=== PATIENT | female | born 1955 | race Caucasian/White ===

== ENCOUNTER → 2023-11-24 | Outpatient (CLI) | payer BC ==
--- NOTE | 2023-11-24 10:06 | US ---
EXAMINATION TYPE: US pelvic complete DATE OF EXAM: 11/24/2023 COMPARISON: NONE CLINICAL INDICATION: Female, 68 years old with history of N939 ABN UTERINE AND VAG BLEEDING; Postmeno pausal bleeding. TECHNIQUE: Transabdominal (TA EXAM MEASUREMENTS: Uterus: 8.5 x 3.5 x 5.0 cm Endometrial Stripe: .9 cm 1. Uterus: Anteverted wnl 2. Endometrium: wnl 3. Right Ovary: Obscured by overlying bowel gas 4. Left Ovary: Obscured by overlying bowel gas 5. Bilateral Adnexa: wnl 6. Posterior cul-de-sac: wnl IMPRESSION: No discrete abnormality seen.
== END | disposition home or self-care (01) ==
LOC: RADUSWWP 08:45
PROVIDERS: ATTEND Family Medicine
DX: N93.9 Abnormal uterine and vaginal bleeding, unspecified (principal); N95.0 Postmenopausal bleeding
CPT/HCPCS: 76856

== ENCOUNTER 2024-03-19 08:32 | Day surgery (SDC) | payer BC ==
[2024-03-13 17:46] VITALS: BMI 35.0
--- NOTE | 2024-03-19 08:17 | P.HPOB ---
History of Present Illness H&P Date: 03/19/24 Chief Complaint: postmenopausal bleeding 68 year old presents for D&C hysteroscopy due to postmenopausal bleeding. Review of Systems All systems: negative Constitutional: Denies chills, Denies fever Eyes: denies blurred vision, denies pain Ears, nose, mouth and throat: Denies headache, Denies sore throat Cardiovascular: Denies chest pain, Denies shortness of breath Respiratory: Denies cough Gastrointestinal: Denies abdominal pain, Denies diarrhea, Denies nausea, Denies vomiting Genitourinary: Denies dysuria, Denies hematuria Musculoskeletal: Denies myalgias Integumentary: Denies pruritus, Denies rash Neurological: Denies numbness, Denies weakness Psychiatric: Denies anxiety, Denies depression Endocrine: Denies fatigue, Denies weight change Past Medical History Past Medical History: Asthma, GERD/Reflux, Hyperlipidemia, Hypertension, Osteoarthritis (OA) Additional Past Medical History / Comment(s): Reason for procedure-"Abnormal bleeding." "They tried to take a bx in the office but my cervix wouldn't open." Asthma on exertion. "Borderline high cholesterol.""No medication for it." History of Any Multi-Drug Resistant Organisms: None Reported Past Surgical History: Orthopedic Surgery Additional Past Surgical History / Comment(s): Broken rt ankle-plate in ankle. Portion of my lt clavicle removed due to arthritis. Back injections steroid x2. Past Anesthesia/Blood Transfusion Reactions: Postoperative Nausea & Vomiting (PONV) Additional Past Anesthesia/Blood Transfusion Reaction / Comment(s): Extreme PONV (that lasts a day)-difficult to wake up. no hx of blood transfusion. Smoking Status: Former smoker - Past Family History Father Family Medical History: Cancer Additional Family Medical History / Comment(s): Lung cancer Medications and Allergies Home Medications Medication Instructions Recorded Confirmed Type Celecoxib [CeleBREX] 200 mg PO QAM 03/13/24 03/13/24 History Metoprolol Succinate (ER) [Toprol 25 mg PO QAM 03/13/24 03/13/24 History Xl] Motrin(Unknown Dose) 1 dose PO Q8H PRN 03/13/24 03/13/24 History Prilosec(Unknown Dose) 1 dose PO QAM 03/13/24 03/13/24 History Proventil(Unknown Dose) 1 - 2 puff INHALATION QAM PRN 03/13/24 03/13/24 History Vitamin D(Unknown Dose) 1 dose PO QAM 03/13/24 03/13/24 History amLODIPine BESYLATE 2.5 mg PO QAM 03/13/24 03/13/24 History Allergies Allergy/AdvReac Type Severity Reaction Status Date / Time No Known Allergies Allergy Verified 03/13/24 17:27 Exam Osteopathic Statement: *. No significant issues noted on an osteopathic structural exam other than those noted in the History and Physical/Consult. Heart: Regular rate and rhythm Lungs: Clear to auscultation bilaterally Abdomen: Soft, nontender Extremities: Negative Homans sign Assessment and Plan (1) Postmenopausal bleeding Status: Acute Code(s): N95.0 - POSTMENOPAUSAL BLEEDING SNOMED Code(s): 79076911 Plan: D&C hysteroscopy
[~2024-03-19 08:32] MED LIST: HYDROmorphone 0.5 MG/0.5 ML SYRINGE IVP PRN; Pre Op ABX Message 1 EACH MISC MISCELLANE ONE
[2024-03-19 09:02] VITALS: TEMP 98.1
[2024-03-19] MEDS: SCOPOLAMINE 1 MG/72 HR PATCH TRANSDERM ONE (09:13)
[2024-03-19] MEDS: LACTATED RINGERS 1,000 ML IV SCH (09:14)
[2024-03-19] MEDS: DEXAMETHASONE SOD PHOSPHATE 4 MG/ML 1 ML VIAL IV ONE (09:15)
[2024-03-19] MEDS: ONDANSETRON 4 MG/2 ML VIAL IVP ONE (09:15)
[2024-03-19] MEDS: IV FLUID CONTINUATION 1,000 ML IV ONE (09:15)
[2024-03-19] MEDS: LIDOCAINE 1% (10MG/ML) FOR IV START INTRADERMA ONE (09:15)
[2024-03-19] MEDS: FAMOTIDINE 20 MG/2 ML VIAL IV STA (09:16)
[2024-03-19] MEDS ORDERED: SUCCINYLCHOLINE CHLORIDE 200 MG/10 ML VIAL IV ONE (09:50)
[2024-03-19] MEDS ORDERED: PROPOFOL 10 MG/ML 20 ML VIAL IV ONE (09:50)
[2024-03-19] MEDS ORDERED: LIDOCAINE 1% INJ 10MG/ML (20 ML MDV) ONE (09:50)
[2024-03-19] MEDS ORDERED: KETAMINE HCL IN 0.9 % NACL 50 MG/5 ML SYRINGE ONE (09:50)
[2024-03-19] MEDS ORDERED: KETOROLAC 15 MG/ML 1 ML VIAL ONE (09:50)
--- NOTE | 2024-03-19 10:35 | P.OP ---
Date of Procedure: 03/19/24 Preoperative Diagnosis: 1. postmenpausal bleeding Postoperative Diagnosis: 1. Post menopausal bleeding 2. endometrial polyps Procedure(s) Performed: D&C hysteroscopy Anesthesia: SHIRAZ Surgeon: Rosie Hoffman Estimated Blood Loss (ml): 2 IV fluids (ml): 300 Urine output (ml): 20 Pathology: other (endometrial currettings) Condition: stable Disposition: PACU Operative Findings: minimal tissue. smooth contour of uterus except small polyps on the left side of uterus. Description of Procedure: patient was taken the operating room where general anesthesia was obtained without difficulty. She is prepped draped in normal sterile fashion dorsal lithotomy position, legs placed in candycane stirrups. Bladder drained of all urine. Weighted speculum placed in the vagina and the anterior lip of the cervix was grasped with single-tooth tenaculum. The cervix was gently dilated to #8 Hegar dilator and a hysteroscopy was performed. Hysteroscopy revealed normal cervix normal right side of the uterus with ostia visualized smooth contour of the uterus and on the left side of the uterus there were 2 small polyps coming from that left side. Sharp curet was then gently used to obtain endometrial curettings and polyp forceps were used to try and achieve more tissue. Hemostasis was assured. All instruments removed from the vagina. Patient tolerated procedure well. Sponge and instrument counts correct 2. She was taken to recovery in stable condition.
[2024-03-19 10:48] VITALS: RESP 18
[2024-03-19 11:53] VITALS: BP 121/79; PULSE 60
== END 2024-03-19 12:23 | disposition home or self-care (01) ==
LOC: OR 08:32
PROVIDERS: ATTEND Obstetrics & Gynecology
DX: N84.0 Polyp of corpus uteri (principal); E78.00 Pure hypercholesterolemia, unspecified; I10 Essential (primary) hypertension; J45.909 Unspecified asthma, uncomplicated; K21.9 Gastro-esophageal reflux disease without esophagitis; M19.90 Unspecified osteoarthritis, unspecified site; Z87.891 Personal history of nicotine dependence; Z79.1 Long term (current) use of non-steroidal anti-inflammatories (NSAID); Z79.899 Other long term (current) drug therapy
CPT/HCPCS: 58558; J0330; J1100; J2405; J2001; J3490; J1885; J2704; 88305; 88342

== ENCOUNTER → 2024-03-30 | Outpatient (CLI) | payer BC ==
--- NOTE | 2024-05-02 15:14 | MM ---
Reason for Exam: Screening (asymptomatic). Last mammogram was performed 1 year(s) and 4 month(s) ago. Patient History: Menarche at age 14. First Full-Term at age 31. Postmenopausal. Risk Values: Alejandra 5 year model risk: 1.9%. NCI Lifetime model risk: 6.7%. Prior Study Comparison: 12/17/2022 Bilateral MG 3D screening mammo w/cad, Unknown. Tissue Density: The breasts are almost entirely fatty. Findings: Analyzed By CAD. Right breast: There is no suspicious group of microcalcifications or new suspicious mass. Left breast: Retroareolar architectural distortion approximately 3.2 cm from nipple on CC view. Overall Assessment: Incomplete: need additional imaging evaluation, BI-RAD 0 Management: Diagnostic Mammogram of the left breast. Diagnostic Breast Ultrasound of the left breast. [facility] will attempt to contact patient to return for supplemental views and ultrasound if indicated. Patient should continue monthly self-breast exams. A clinical breast exam by your physician is recommended on an annual basis. This exam should not preclude additional follow-up of suspicious palpable abnormalities. Note on Alejandra scores and lifetime risk: 1. A Alejandra score greater than 3% is considered moderate risk. If this is the case, consider specialist referral to assess eligibility for a risk reducing agent. 2. If overall lifetime risk for the development of breast cancer is 20% or higher, the patient may qualify for future screening with alternating mammogram and breast MRI. Electronically signed and approved by: Nestor Anderson DO
== END | disposition home or self-care (01) ==
LOC: RADMAMWWP 12:00
PROVIDERS: ATTEND Family Medicine
DX: Z12.31 Encounter for screening mammogram for malignant neoplasm of breast (principal); Z78.0 Asymptomatic menopausal state; R92.313 Mammographic fatty tissue density, bilateral breasts
CPT/HCPCS: 77063; 77067

== ENCOUNTER → 2024-05-02 | Outpatient (CLI) | payer BC ==
--- NOTE | 2024-05-02 15:14 | MM ---
Reason for Exam: Additional evaluation requested from abnormal screening. Last screening mammogram was performed 1 month(s) ago. Patient History: Menarche at age 14. First Full-Term at age 31. Postmenopausal. Risk Values: Alejandra 5 year model risk: 1.9%. NCI Lifetime model risk: 6.7%. Prior Study Comparison: 12/17/2022 Bilateral MG 3D screening mammo w/cad, Unknown. 03/30/2024 Bilateral MG 3D screening mammo w/cad, [facility]. Tissue Density: Left: The breasts are heterogeneously dense, which may obscure small masses. Findings: Analyzed By CAD. Left-sided retroareolar spiculated mass 2.5 cm from the nipple measuring 2 cm in size. Ultrasound is recommended. Overall Assessment: Incomplete: need additional imaging evaluation, BI-RAD 0 Management: Diagnostic Breast Ultrasound of the left breast. . Results were given to the patient verbally at the time of exam. Patient should continue monthly self-breast exams. A clinical breast exam by your physician is recommended on an annual basis. This exam should not preclude additional follow-up of suspicious palpable abnormalities. Note on Alejandra scores and lifetime risk: 1. A Alejandra score greater than 3% is considered moderate risk. If this is the case, consider specialist referral to assess eligibility for a risk reducing agent. 2. If overall lifetime risk for the development of breast cancer is 20% or higher, the patient may qualify for future screening with alternating mammogram and breast MRI. Electronically signed and approved by: Tito Quinones M.D. Radiologis
--- NOTE | 2024-05-02 15:15 | USB ---
Reason for Exam: Additional evaluation requested from abnormal screening. Patient History: Menarche at age 14. First Full-Term at age 31. Postmenopausal. Risk Values: Alejandra 5 year model risk: 1.9%. NCI Lifetime model risk: 6.7%. Technique: Method: Targeted. Doppler: Color. Patient Position: Supine. Prior Study Comparison: 12/17/2022 Bilateral MG 3D screening mammo w/cad, Unknown. 03/30/2024 Bilateral MG 3D screening mammo w/cad, [facility]. Findings: The periareolar of the left breast, the axilla of the left breast and the retroareolar of the left breast were scanned. Hypoechoic mass with posterior acoustic shadowing and irregular margins at the left retroareolar 9:00 position measuring 1.5 x 1.2 cm which is highly suspicious for malignancy. Ultrasound-guided core biopsy is recommended. No abnormal axillary adenopathy seen. Overall Assessment: Highly suggestive of malignancy, BI-RAD 5 Management: Ultrasound Core Biopsy of the left breast. A clinical breast exam by your physician is recommended on an annual basis and results should be correlated with mammographic findings. This exam should not preclude additional follow-up of suspicious palpable abnormalities. Results were given to the patient verbally at the time of exam. Electronically signed and approved by: Tito Quinones M.D. Radiologis
== END | disposition home or self-care (01) ==
LOC: RADMAMWWP 14:04
PROVIDERS: ATTEND Family Medicine
DX: R92.8 Other abnormal and inconclusive findings on diagnostic imaging of breast
CPT/HCPCS: 77061; 77065

== ENCOUNTER → 2024-06-08 | Day surgery (SDC) | payer BC ==
--- NOTE | 2024-06-18 11:22 | MM ---
Reason for Exam: Post Procedure Mammogram. Last screening mammogram was performed 2 month(s) ago. Patient History: Menarche at age 14. First Full-Term at age 31. Postmenopausal. Risk Values: Alejandra 5 year model risk: 1.9%. NCI Lifetime model risk: 6.7%. Prior Study Comparison: 12/17/2022 Bilateral MG 3D screening mammo w/cad, Unknown. 03/30/2024 Bilateral MG 3D screening mammo w/cad, [facility]. 05/02/2024 Left MG 3D work up w/cad LT, [facility]. 05/02/2024 Left US breast workup limited LT, [facility]. Tissue Density: Left: The breasts are almost entirely fatty. Pathology Description: Location: posterior, retroareolar. Marker Left Behind. Needle Type: Mammotome Cores: 3 Skin Nicks: 1 Gauge: 13 The procedure of ultrasound guided core biopsy was explained to the patient. Benefits, alternatives, and risks were discussed. An informed consent was then obtained. The patient was placed in supine positioning for imaging and for the procedure. The overlying skin was prepped and draped in usual sterile fashion. Lidocaine buffered with bicarbonate was used as anesthetic into the skin and subcutaneous tissue up to area of concern in the left breast. A awais was made with surgical scalpel. Under ultrasound guidance, a 12-gauge vacuum assisted biopsy gun device was used to obtain 3 core samples. Following this, a biopsy clip was left in lesion. The patient tolerated the procedure well without any immediate complication. The patient was kept in the radiology department for short stay after the procedure and then discharged home in stable condition. Postprocedure mammogram: The patient was transferred to mammography for physician ordered post procedure mammogram for clip placement verification. Impression: Successful, uncomplicated ultrasound guided core biopsy of area of concern in the left breast, full pathology results to follow. [facility], , 06/08/2024 11:50 AM. Pathology Results: Result: Malignant, Invasive ductal carcinoma. Pathology and radiology were reviewed. Findings are concordant. LEFT BREAST, POSTERIOR NIPPLE, NEEDLE CORE BIOPSY: Invasive moderately differentiated ductal carcinoma (Grade 2). See Surgical Pathology Cancer Case Summary. Overall Assessment: Malignant Assessment: MG diagnostic mammo LT wo CAD. - Left: Known biopsy proven malignancy, BI-RAD 6. Management: Surgical Consultation of the left breast. Electronically signed and approved by: Nestor Anderson, DO
== END ==
LOC: RADUSWWP 09:46
PROVIDERS: ATTEND Radiology Body Imaging
DX: C50.012 Malignant neoplasm of nipple and areola, left female breast (principal)
CPT/HCPCS: 77065; 88305; 88341; 88342

== ENCOUNTER → 2024-06-20 | Outpatient (CLI) | payer BC ==
[2024-06-20 10:07] VITALS: BP 145/81; PULSE 57; RESP 17; TEMP 97.9
--- NOTE | 2024-06-20 10:52 | P.GSCN ---
History of Present Illness Consult date: 06/20/24 Reason for Consult: left breast IDC History of present illness: Jamila is a 68 year old female seen in consultation for Dr. Perez/ Aracely Bishop regarding a left breast biopsy-proven invasive ductal carcinoma. She underwent a bilateral mammogram on 03-30-2024. This revealed in the left breast architectural distortion which was approximately 3.2 cm from the nipple on the cc view. Diagnostic mammogram was recommended. Ultrasound of the left breast was performed on 05-02-2024. This showed a 1.5 x 1.2 cm highly suspicious lesion in the left retroareolar region. She underwent an ultrasound-guided core biopsy on 06-08-2024. Biopsy revealed invasive moderately differentiated ductal carcinoma grade 2. This is ER/AL positive HER2 pending. She did not feel anything in her breast. She has never had any surgery on either breast. She is not complaining of any recent trauma or infection in the breast. Caffeine: 3 cups/day nicotine: stopped 40 years ago, smoked for 5 years 3 cig/day chocolate: occasional BCP: < 1 year many years ago hormones: none Family History: father: lung cancer smoker Hormonal History: menarche: 15 M3, breast fed: no, age at first : 31 menopause: 54 Surgical History: fracture right ankle left color bone arthritis D&C 2 months ago polyp, bleeding now; Dr. Hoffman Medical History: HTN osteo-arthritis back pain cortisone injections in back for about 1 year Social History: nicotine: as above alcohol: occasional ( twice a month) drugs: none Review of Systems - Constitutional Reports sweats - EENT Eyes: denies blurred vision Ears: deny: decreased hearing, tinnitus Ears, nose, mouth and throat: Denies dysphagia - Breasts bilateral: as per HPI - Cardiovascular Denies chest pain, Denies shortness of breath - Respiratory Denies cough, Denies 7 - Gastrointestinal Reports as per HPI - Genitourinary Genitourinary: Denies dysuria, Denies hematuria Menstruation: Reports as per HPI - Musculoskeletal Reports as per HPI - Integumentary Denies rash, Denies unusual bruising - Neurological Denies headaches, Denies syncope - Psychiatric Reports as per HPI - Endocrine Reports as per HPI - Hematologic/Lymphatic Reports as per HPI - Allergic/Immunologic Reports as per HPI Past Medical History Past Medical History: Asthma, GERD/Reflux, Hyperlipidemia, Hypertension, Osteoarthritis (OA) Additional Past Medical History / Comment(s): Reason for procedure-"Abnormal bleeding." "They tried to take a bx in the office but my cervix wouldn't open." Asthma on exertion. "Borderline high cholesterol.""No medication for it." History of Any Multi-Drug Resistant Organisms: None Reported Past Surgical History: Orthopedic Surgery Additional Past Surgical History / Comment(s): Broken rt ankle-plate in ankle. Portion of my lt clavicle removed due to arthritis. Back injections steroid x2. Past Anesthesia/Blood Transfusion Reactions: Postoperative Nausea & Vomiting (PONV) Additional Past Anesthesia/Blood Transfusion Reaction / Comm: Extreme PONV (that lasts a day)-difficult to wake up. no hx of blood transfusion. Past Psychological History: No Psychological Hx Reported Smoking Status: Former smoker Past Alcohol Use History: Rare Additional Past Alcohol Use History / Comment(s): Smoked at age 20 for 1 year. less then a ppd. Past Drug Use History: None Reported - Past Family History Father Family Medical History: Cancer Additional Family Medical History / Comment(s): Lung cancer Medications and Allergies Home Medications Medication Instructions Recorded Confirmed Type Celecoxib [CeleBREX] 200 mg PO QAM 03/13/24 06/20/24 History Metoprolol Succinate (ER) [Toprol 25 mg PO QAM 03/13/24 06/20/24 History Xl] Motrin(Unknown Dose) 1 dose PO Q8H PRN 03/13/24 06/20/24 History Prilosec(Unknown Dose) 1 dose PO QAM 03/13/24 06/20/24 History Proventil(Unknown Dose) 1 - 2 puff INHALATION QAM PRN 03/13/24 06/20/24 History Vitamin D(Unknown Dose) 1 dose PO QAM 03/13/24 06/20/24 History amLODIPine BESYLATE 2.5 mg PO QAM 03/13/24 06/20/24 History Allergies Allergy/AdvReac Type Severity Reaction Status Date / Time No Known Allergies Allergy Verified 06/20/24 10:02 Surgical - Exam Vital Signs Temp Pulse Resp BP Pulse Ox 97.9 F 57 L 17 145/81 97 06/20/24 10:03 06/20/24 10:03 06/20/24 10:03 06/20/24 10:03 06/20/24 10:03 - General no distress - Eyes normal ocular movement - Neck trachea midline - Respiratory normal respiratory effort, clear to auscultation - Cardiovascular Rhythm: regular Heart Sounds: normal: S1, S2 - Abdomen Abdomen: soft, non tender, no guarding, no rigid, no rebound - Integumentary normal turgor - Neurologic no disoriented, no combative - Musculoskeletal normal gait - Psychiatric oriented to time, oriented to person, oriented to place, speech is normal, memory intact Breast Exam: BRA: 44D Inspection: bilateral grade 2 ptosis Palpation: right breast: Exam no dominant masses or nodules of concern Right axilla: No adenopathy of concern Left breast: Multi positional exam no dominant masses or nodules of concern Left axilla: No adenopathy of concern Results Mammogram reviewed with Dr. Knapp from radiology, lesion 3.2 cm from the left nipple areolar complex in the retroareolar region, no lesions of concern in the right breast Assessment and Plan Assessment: Impression: Left breast invasive ductal carcinoma stage I Hypertension Plan: Presentation of case at tumor board Probable left breast needle localization lumpectomy via mass to proximal the incision with oncoplastic tissue transfer, left breast sentinel node injection and left breast sentinel node biopsy, possible left axillary node dissection CC: Dr. Jessica, Dr. Perez
== END ==
LOC: WWCWWP 09:27
PROVIDERS: ATTEND Surgery
DX: R92.8 Other abnormal and inconclusive findings on diagnostic imaging of breast (principal); C50.912 Malignant neoplasm of unspecified site of left female breast; I10 Essential (primary) hypertension; Z87.891 Personal history of nicotine dependence; Z17.0 Estrogen receptor positive status [ER+]; Z79.899 Other long term (current) drug therapy

== ENCOUNTER 2024-07-17 07:14 | Day surgery (SDC) | payer BC ==
[~2024-07-17 07:14] MED LIST changes: -HYDROmorphone 0.5 MG/0.5 ML SYRINGE IVP PRN; +LIDOCAINE 1% (10MG/ML) FOR IV START INTRADERMA PRN; +MIDAZOLAM 2 MG/2 ML VIAL IV PRN; -Pre Op ABX Message 1 EACH MISC MISCELLANE ONE; +fentaNYL (PF) 50 MCG/ML 2 ML AMP IVP PRN
[2024-07-17] MEDS: LACTATED RINGERS 1,000 ML IV SCH (07:47)
[2024-07-17] MEDS: ACETAMINOPHEN TAB 500 MG TAB PO PRN (07:48)
[2024-07-17] MEDS: SCOPOLAMINE 1 MG/72 HR PATCH TRANSDERM STA (07:52)
[2024-07-17] MEDS: SODIUM BICARB 8.4% 10 ML VIAL (1 MEQ/ML) MISCELLANE ONE (08:41)
[2024-07-17] MEDS: LIDOCAINE 1% INJ 10MG/ML (20 ML MDV) SQ ONE ×6 (08:41→11:57)
[2024-07-17] MEDS: ONDANSETRON 4 MG/2 ML VIAL IVP ONE (09:18)
[2024-07-17] MEDS: HEPARIN SODIUM,PORCINE 5,000 UNIT/ML 1 ML VIAL SQ PRN (09:18)
[2024-07-17] MEDS: DEXAMETHASONE SOD PHOSPHATE 4 MG/ML 1 ML VIAL IV ONE (09:18)
--- NOTE | 2024-07-17 09:32 | P.NAPBC ---
NAPBC Queries - NAPBC Queries Was patient's case review presented at [facility] tumor board? If no, comment.: Yes Was patient's pathology reviewed at [facility]? If no, comment.: Yes Was breast conservation surgery offered? If no, comment.: Yes Was sentinel node biopsy offered? If no, comment.: Yes Was diagnosis confirmed by percutaneous core biopsy? If no, comment.: Yes Is patient mastectomy patient?: No Was a preop referral to reconstructive surgeon offered?: No Clinical Stage: stage 1 left breast IDC [id number]?G2
[2024-07-17] MEDS ORDERED: ePHEDrine 50 MG/ML 1 ML VIAL ONE (09:43)
[2024-07-17] MEDS ORDERED: PROPOFOL 10 MG/ML 20 ML VIAL IV ONE (09:43)
[2024-07-17] MEDS ORDERED: PHENYLEPHRINE 10 MG/ML VIAL ONE (09:43)
[2024-07-17] MEDS ORDERED: ROCURONIUM 10 MG/ML (5 ML VIAL) IV ONE (09:43)
[2024-07-17] MEDS ORDERED: MIDAZOLAM 2 MG/2 ML VIAL ONE (09:43)
[2024-07-17] MEDS ORDERED: HYDROmorphone (PF) 1 MG/ML ONE (09:43)
[2024-07-17] MEDS ORDERED: SUCCINYLCHOLINE CHLORIDE 200 MG/10 ML VIAL IV ONE (09:43)
[2024-07-17] MEDS ORDERED: fentaNYL (PF) 50 MCG/ML 2 ML AMP ONE (09:43)
[2024-07-17] MEDS ORDERED: LIDOCAINE 1% INJ 10MG/ML (20 ML MDV) ONE (09:43)
[2024-07-17] MEDS ORDERED: GLYCOPYRROLATE 0.2 MG/ML 2 ML VIAL ONE (09:43)
[2024-07-17] MEDS: LACTATED RINGERS 1,000 ML IV ONE (11:34)
--- NOTE | 2024-07-17 11:45 | NM ---
EXAMINATION TYPE: NM sentinel node injection DATE OF EXAM: 07/17/2024 COMPARISON: NONE CLINICAL INDICATION: Female, 69 years old with history of C50.012 MALIGNANT NEOPLASM OF NIPPLE AND AR EOLA, LEFT BREAST; TECHNIQUE AND FINDINGS: The procedure of sentinel lymph node injection was explained to the patient. The benefits, alternatives, and risks were discussed. An informed consent was then obtained. Overlying skin is cleaned with sterile alcohol. Following this, 488 uCi Tc99m Tilmanocept was inject ed in the upper outer aspect of the left nipple intradermally. The patient tolerated the procedure well without any immediate complication. The patient was kept in the radiology department for short stay after the procedure and then taken to surgery for surgical p rocedure what is presumed intraoperative gamma probe will be used for sentinel lymph node detection. IMPRESSION: Left breast radiotracer injection for sentinel node localization as above. [facility], , 07/17/2024 11:43 AM
--- NOTE | 2024-07-17 11:57 | P.BCAON ---
Date of Procedure: 07/17/24 Preoperative Diagnosis: Left breast invasive ductal carcinoma Postoperative Diagnosis: Same Procedure(s) Performed: Left sentinel node mapping, left sentinel node biopsy, left needle localization lumpectomy, mastopexy incision, oncoplastic tissue transfer 76 cm Anesthesia: MARKYA Surgeon: Rosemary Mercado Estimated Blood Loss (ml): 15 IV fluids (ml): 1,000 Pathology: other (Ermine node, breast tissue) Condition: stable Disposition: same day Indications for Procedure: biopsy proven left breast invasive ductal carcinoma Operative Findings: Breast cancer close under nipple areolar complex Description of Procedure: The patient was seen initially in the radiology department for needle localization of the area of concern was performed, as well as radiotracer injection in the periareolar region. The patient was seen then in the preoperative area for marking was placed for a mastopexy incision. The elevation of the nipple areolar complex was 3 cm at the meridian line. The patient was then brought to the operative suite. Following induction of anesthesia the neoprobe was used to interrogate the axilla to determine if the radiotracer had traveled. There appeared to be minimal radioactivity in the axilla. Therefore 8 cc of half percent methylene blue were injected into the periareolar region for lymphatic mapping. The breast was massaged. Following induction of anesthesia the left breast and axilla were prepped and draped in a sterile fashion. Area of the axilla was approached initially. Using the neoprobe for localization an incision was made. This was carried down into the axillary tissue which was fibrofatty in nature. There was some minimal increased radioactivity and there was a blue lymph node identified. This node was identified and removed. The 10-second count on the node was 3520, the 10-second background count was 26. No other palpable blue or radioactive lymph nodes were identified. The wound was well irrigated. The deep tissues were closed using 3-0 Vicryl suture. The subcutaneous tissue was closed using 3-0 Vicryl suture. The skin was closed using 4-0 Monocryl. Following this the area of the breast was approached. The skin was de-epithelialized and a crescent shaped in the superior aspect of the nipple areolar complex approximately 3 cm of elevation were to be performed. After this was performed the breast parenchyma was entered. This was dissected down to the area of the needle. The needle was brought into the wound. Surrounding tissue was excised. The area of the clip was identified but it appeared to be brought up into the suction. The area of the tissue however was clearly palpable where the cancer was present. Wide excision was performed around this. Anteriorly the tumor appeared to be very close under the nipple areolar complex. Additional tissue was taken in this area. Additional tissue was taken inferiorly. Posteriorly dissection was onto the pectoralis muscle. Additional tissue was taken medially and laterally. The specimen was painted for orientation. Radiograph of the specimen revealed the tumor but not the clip which was to be expected as it was felt that the clip had been sucked into the suction. After reassured that hemostasis was attained the cavity itself was noted to be 7 x 4 cm. Medial and lateral pillars were developed which were 6 x 4 cm each. After we are sure that hemostasis was attained titanium clips were placed. Surgicel in powder form was placed. The pillars were brought together and secured in place using 3-0 Vicryl suture. The subcutaneous tissue was closed using 3-0 Vicryl suture. The skin was closed using 4-0 Monocryl. There did appear to be some demarcation of color on the upper half of the nipple areolar complex however this was the area and that the tumor was very close in proximity underneath. This area will be followed very closely. The patient tolerated the procedure in stable condition. All instrument and sponge counts were correct at the end of the case. - Sentinal Node Biopsy Operation performed with curative intent: Yes Tracer(s) used in upfront surgery (non-neoadjuvant): dye, radioactive tracer Tracer(s) used in the neoadjuvant setting: N/A All nodes present at end of dye-filled channel removed: Yes All significantly radioactive nodes were removed: Yes All palpably suspicious nodes were removed: Yes
--- NOTE | 2024-07-17 11:59 | P.DS ---
Providers Attending physician: Rosemary Mercado Primary care physician: Martín Perez Plan - Discharge Summary Discharge Rx Participant: No New Discharge Prescriptions: New oxyCODONE HCL [OxyIR] 5 mg PO Q6H PRN #5 tab PRN Reason: Breakthrough Pain No Action amLODIPine BESYLATE 2.5 mg PO QAM Vitamin D(Unknown Dose) 1 dose PO QAM Proventil(Unknown Dose) 1 - 2 puff INHALATION QAM PRN PRN Reason: Shortness Of Breath Prilosec(Unknown Dose) 1 dose PO QAM Metoprolol Succinate (ER) [Toprol Xl] 25 mg PO QAM Celecoxib [CeleBREX] 200 mg PO QAM Acetaminophen Tab [Tylenol Tab] 500 mg PO Q6H PRN PRN Reason: Pain Motrin(Unknown Dose) 1 dose PO Q8H PRN PRN Reason: Pain Discharge Medication List Celecoxib [CeleBREX] 200 mg PO QAM 03/13/24 [History] Metoprolol Succinate (ER) [Toprol Xl] 25 mg PO QAM 03/13/24 [History] Motrin(Unknown Dose) 1 dose PO Q8H PRN 03/13/24 [History] Prilosec(Unknown Dose) 1 dose PO QAM 03/13/24 [History] Proventil(Unknown Dose) 1 - 2 puff INHALATION QAM PRN 03/13/24 [History] Vitamin D(Unknown Dose) 1 dose PO QAM 03/13/24 [History] amLODIPine BESYLATE 2.5 mg PO QAM 03/13/24 [History] Acetaminophen Tab [Tylenol Tab] 500 mg PO Q6H PRN 07/16/24 [History] oxyCODONE HCL [OxyIR] 5 mg PO Q6H PRN #5 tab 07/17/24 [Rx] Follow up Appointment(s)/Referral(s): Rosemary Mercado MD [STAFF PHYSICIAN] - 07/26/24 12:40 pm Patient Instructions/Handouts: *Surgery [facility] - Scopalamine Patch Instructions Activity/Diet/Wound Care/Special Instructions: Do not drive for 24 hours from discharge or if taking narcotic pain medicine May shower after 48 hours Wear bra at all times Discharge Disposition: HOME SELF-CARE
[2024-07-17 12:16] VITALS: TEMP 96.8
[2024-07-17] MEDS: HYDROmorphone 0.5 MG/0.5 ML SYRINGE IVP PRN (12:42)
[2024-07-17] MEDS: droPERidol 5 MG/2 ML VIAL IVP ONE (13:53)
[2024-07-17 14:43] VITALS: BP 128/79; PULSE 75; RESP 14
--- NOTE | 2024-07-26 14:05 | MM ---
Pathology Description: Approach: CC FA Needle Type: 9 cm Kopan Biopsy-proven malignancy subareolar left breast is targeted for needle localization. The procedure of needle localization with wire placement and than surgical excision was explained to the patient. Benefits, alternatives, and risks were discussed. An informed consent was then obtained. A CC from above approach was determined due to surgical technique. The overlying skin was prepped and draped in usual sterile fashion. Lidocaine buffered with bicarbonate was used as anesthetic into the skin and subcutaneous tissue up to the level of area of concern. A 9 cm Kopan's needle was used. It was placed via a CC from above approach under mammographic guidance. Subsequent 90 degrees mammogram show the needle to be in satisfactory position relative to the targeted area. At this point, wire was placed and the needle was withdrawn. The wire was fixed to patient's skin. Images were marked for surgeon. The patient tolerated the procedure well without any immediate complication. The patient was kept in the radiology department for short stay after the procedure and then taken to surgery for surgical excision. Targeted density and wire are identified in specimen mammogram. The clip is not identified in the specimen. The OR is called and they note that the clip was observed but was lost to suction. The patient was kept in hospital for short stay after the procedure and then discharged home in stable condition. IMPRESSION: Successful, uncomplicated needle localization with wire placement and surgical excision of biopsy-proven left breast cancer; full pathology results to follow. [facility], , 07/17/2024 11:31 AM. Pathology Results: Result: Malignant, Invasive ductal carcinoma. Pathology and radiology were reviewed. Findings are concordant. A. LEFT BREAST, LUMPECTOMY: Invasive poorly differentiated ductal carcinoma (Grade 3) and intermediate to high grade DCIS. Margins negative for invasive carcinoma or DCIS. Background fibrocystic changes and previous biopsy site. See Surgical Pathology Cancer Case Summary. B. SENTINEL LYMPH NODE, LEFT BREAST: Lymph node negative for metastasis. CK7 immunostain performed on block B1 and GIL immunostain performed on block B2 are confirmatory (controls appropriate). C. ADDITIONAL AXILLARY TISSUE: Three lymph nodes negative for metastasis. D. NEW POSTERIOR MARGIN LEFT BREAST: Unremarkable benign fibroadipose tissue. E. NEW ANTERIOR MEDIAL LATERAL LEFT BREAST: Benign breast tissue with fibrocystic changes. F. NEW INFERIOR MARGIN LEFT BREAST: Benign breast tissue with fibrocystic changes. G. SUBCUTANEOUS TISSUE UNDER NIPPLE AREOLAR COMPLEX LEFT BREAST: Benign breast tissue with focal atypical ductal hyperplasia (ADH), fibrocystic changes and duct ectasia. Margins negative for ADH. H. EPITHELIALIZED TISSUE SKIN LEFT BREAST: Unremarkable benign skin and subcutaneous tissue. Overall Assessment: Malignant Management: Surgical Consultation of the left breast. Electronically signed and approved by: Suman Knapp M.D. Radiologist
== END 2024-07-17 15:08 | disposition home or self-care (01) ==
LOC: OR 07:14
PROVIDERS: ATTEND Surgery
DX: C50.012 Malignant neoplasm of nipple and areola, left female breast (principal); N60.12 Diffuse cystic mastopathy of left breast; N60.92 Unspecified benign mammary dysplasia of left breast; N60.42 Mammary duct ectasia of left breast; I10 Essential (primary) hypertension; K21.9 Gastro-esophageal reflux disease without esophagitis; Z91.89 Other specified personal risk factors, not elsewhere classified; Z79.899 Other long term (current) drug therapy
CPT/HCPCS: 19301; 14301; 14302; 38525; 19316; 88305; 88307; 76098; 19281; 38792; C1819; A9520; J2250; J0330; J1644; J1100; J0690; J2405; J2003; J3010; J1171 ×2; J2704; J1790; J2371; J1596; 88342

== ENCOUNTER → 2024-07-26 | Outpatient (CLI) | payer BC ==
[2024-07-26 12:32] VITALS: BP 143/72; PULSE 67; RESP 16; TEMP 98.7
--- NOTE | 2024-07-26 13:03 | P.BCPO ---
Progress Note - Text Progress Note Date: 07/26/24 Jamila is status post a left breast lumpectomy and SNB (4 nodes) negative on 07-17-24. She had all margins (-) for a tripple + invasive ductal cancer. G3, ER+Pr+[id number], Tumor size 1.6 cm. saw radiation oncology on 07-03-24 based on HER2 positivity will need chemo- therapy to be followed by radiation therapy : Lungs: Clear Heart: Regular rate and rhythm Incision: Clean and dry breast and axilla Post Op Education - Post Op Education Post Op Education Provided Date: 07/26/24 - Functional Assessment Performed?: Yes (arm abduction passed) Path Report - Was patient given path report? Path Report Date Given: 07/26/24
== END ==
LOC: WWCWWP 12:23
PROVIDERS: ATTEND Surgery
DX: Z48.817 Encounter for surgical aftercare following surgery on the skin and subcutaneous tissue (principal); Z98.890 Other specified postprocedural states; Z85.3 Personal history of malignant neoplasm of breast

== ENCOUNTER → 2024-08-06 | Outpatient (CLI) | payer BC ==
--- NOTE | 2024-08-06 17:26 | CA ---
Transthoracic Echo Report Name: Jamila Hernandez Age: 69 Gender: F : 1955 Exam Date: 08/06/2024 13:09 Exam Location: [place] [facility] Ht (in): 66 Wt (lb): 218 Ordering Physician: Diana Jessica MD Attending/Referring Phys: Concrete Form Setter Marie Pugh RDCS Procedure CPT: Indications: Z01.818 Chemo exposure Cardiac Hx: Technical Quality: Fair Contrast 1: Total Dose (mL): Contrast 2: Total Dose (mL): MEASUREMENTS (Male / Female) Normal Values 2D ECHO LV Diastolic Diameter PLAX 4.3 cm 4.2 - 5.9 / 3.9 - 5.3 cm LV Systolic Diameter PLAX 3.6 cm IVS Diastolic Thickness 1.3 cm 0.6 - 1.0 / 0.6 - 0.9 cm LVPW Diastolic Thickness 1.3 cm 0.6 - 1.0 / 0.6 - 0.9 cm LV Relative Wall Thickness 0.6 RV Internal Dim ED PLAX 2.3 cm LA Systolic Diameter LX 3.3 cm 3.0 - 4.0 / 2.7 - 3.8 cm LV Diastolic Volume MOD BP 65.3 cm??? 67 - 155 / 56 - 104 cm??? LV Systolic Volume MOD BP 18.6 cm??? 22 - 58 / 19 - 49 cm??? LV Ejection Fraction MOD BP 71.5 % >= 55 % LV Diastolic Volume MOD 4C 72.0 cm??? LV Systolic Volume MOD 4C 16.2 cm??? LV Ejection Fraction MOD 4C 77.5 % LV Diastolic Length 4C 8.1 cm LV Systolic Length 4C 6.1 cm LV Diastolic Volume MOD 2C 55.2 cm??? LV Systolic Volume MOD 2C 20.7 cm??? LV Ejection Fraction MOD 2C 62.4 % LV Diastolic Length 2C 7.5 cm LV Systolic Length 2C 5.8 cm M-MODE Aortic Root Diameter MM 3.1 cm LA Systolic Diameter MM 2.8 cm LA Ao Ratio MM 0.9 AV Cusp Separation MM 2.0 cm DOPPLER Mitral E Point Velocity 59.2 cm/s Mitral A Point Velocity 76.1 cm/s Mitral E to A Ratio 0.8 MV Deceleration Time 289.2 ms MV E' Velocity 5.9 cm/s Mitral E to MV E' Ratio 10.0 FINDINGS Left Ventricle Left ventricular ejection fraction is estimated at 55-60 %. Mildly increased septal wall thickness. Mildly increased posterior wall thickness. Normal left ventricular systolic function with no obvious regional wall motion abnormalities. Left ventricular cavity size normal. Right Ventricle Normal right ventricular size and function. Right ventricular systolic pressure within normal limits. Right Atrium Normal right atrial size. Left Atrium Normal left atrial size. Mitral Valve Structurally normal mitral valve. Trace mitral regurgitation. No mitral stenosis. Aortic Valve Trileaflet aortic valve. No aortic valve stenosis or regurgitation. Tricuspid Valve Structurally normal tricuspid valve. Trace tricuspid regurgitation. No tricuspid stenosis. Pulmonic Valve Structurally normal pulmonic valve. Trace pulmonic regurgitation. No pulmonic stenosis. Pericardium No pericardial or pleural effusion. Aorta Normal size aortic root and proximal ascending aorta. CONCLUSIONS Normal LV function Previewed by: Dr. Bora Corral MD (Electronically Signed) Final Date: 06 August 2024 17:25
== END | disposition home or self-care (01) ==
LOC: RADECHMAIN 13:03
PROVIDERS: ATTEND Internal Medicine Hematology & Oncology
DX: Z01.818 Encounter for other preprocedural examination (principal); C50.812 Malignant neoplasm of overlapping sites of left female breast; M12.9 Arthropathy, unspecified; I10 Essential (primary) hypertension
CPT/HCPCS: 93306

== ENCOUNTER 2024-08-10 07:49 | Day surgery (SDC) | payer BC ==
[~2024-08-10 07:49] MED LIST changes: +HYDROmorphone 0.5 MG/0.5 ML SYRINGE IVP PRN; -LIDOCAINE 1% (10MG/ML) FOR IV START INTRADERMA PRN; +Pre Op ABX Message 1 EACH MISC MISCELLANE ONE; -fentaNYL (PF) 50 MCG/ML 2 ML AMP IVP PRN
[2024-08-10 08:10] VITALS: TEMP 97
[2024-08-10 08:23] LABS: Glucose,Whole Blood 112 mg/dL (70-110)
[2024-08-10] MEDS: IV FLUID CONTINUATION 1,000 ML IV ONE (08:23)
[2024-08-10] MEDS: LACTATED RINGERS 1,000 ML IV SCH (08:23)
[2024-08-10] MEDS: ONDANSETRON 4 MG/2 ML VIAL IVP ONE (08:24)
[2024-08-10] MEDS: DEXAMETHASONE SOD PHOSPHATE 4 MG/ML 1 ML VIAL IV ONE (08:25)
[2024-08-10] MEDS: SCOPOLAMINE 1 MG/72 HR PATCH TRANSDERM STA (08:32)
[2024-08-10] MEDS ORDERED: PROPOFOL 10 MG/ML 20 ML VIAL IV ONE (09:26)
[2024-08-10] MEDS ORDERED: LIDOCAINE 1% INJ 10MG/ML (20 ML MDV) ONE (09:26)
[2024-08-10] MEDS ORDERED: KETAMINE HCL IN 0.9 % NACL 50 MG/5 ML SYRINGE ONE (09:26)
[2024-08-10] MEDS ORDERED: KETOROLAC 15 MG/ML 1 ML VIAL ONE (09:26)
[2024-08-10] MEDS ORDERED: MIDAZOLAM 2 MG/2 ML VIAL ONE (09:26)
[2024-08-10] MEDS ORDERED: GLYCOPYRROLATE 0.2 MG/ML 2 ML VIAL ONE (09:26)
[2024-08-10] MEDS: LIDOCAINE 1% INJ 10MG/ML (20 ML MDV) SQ ONE (09:56)
[2024-08-10] MEDS: HEPARIN SODIUM,PORCINE 100 UNIT/ML 5 ML VIAL IV ONE (09:57)
[2024-08-10] MEDS: SODIUM CHLORIDE 0.9% 50 ML with ceFAZolin 2,000 MG IV ONE (09:57)
[2024-08-10] MEDS ORDERED: ACETAMINOPHEN TAB 325 MG TAB PO PRN (10:27)
[2024-08-10] MEDS ORDERED: HYDROcodone/APAP 5-325MG 1 EACH TAB PO PRN (10:27)
[2024-08-10] MEDS ORDERED: traMADol 50 MG TAB PO PRN (10:27)
[2024-08-10] MEDS ORDERED: NALOXONE 0.4 MG/ML 1 ML VIAL IV PRN (10:27)
--- NOTE | 2024-08-10 10:27 | P.OP ---
Date of Procedure: 08/10/24 Procedure(s) Performed: PREOPERATIVE DIAGNOSIS: Left breast cancer POSTOPERATIVE DIAGNOSIS: Same PROCEDURE: Port-A-Cath placement with fluoroscopic and ultrasound guidance SURGEON: Shirley EBL: Minimal ANESTHESIA: Sedation and local COMPLICATIONS: None OPERATIVE PROCEDURE: Patient was brought and placed on the operative table in the supine position. The patient was placed under general anesthesia at that time. The chest and neck were prepped and draped in usual sterile fashion. The ultrasound probe was used to identify the location of the right internal jugular vein. The skin was localized with lidocaine. The Seldinger needle was advanced into the IJ under ultrasound guidance. The wire was advanced through the needle under fluoroscopic guidance into the superior vena cava. A port pocket was created in the right infraclavicular location. The catheter was tunneled from the wire entrance site to the port pocket. The port was then connected to the catheter. The dilator introducer was threaded over the guidewire. The guidewire and dilator were then removed. The catheter was advanced through the introducer and introducer was then removed. The tip was seen to be in the right atrial junction via fluoroscopy. A picture of the radiograph showing the tip of the catheter was taken. Port was flushed with both saline and a Hep-Lock solution. There was good flow both in and out of the port. The port was sutured in underlying tissues using 3-0 silk sutures. The subcutaneous tissues were reapproximated using 3-0 Vicryl sutures and the skin at both locations using 4-0 Monocryl sutures. Skin glue and sterile dressings then applied. DISPOSITION: Stable to recovery room
--- NOTE | 2024-08-10 10:30 | P.GSHP ---
History of Present Illness H&P Date: 08/10/24 Chief Complaint: Left breast cancer 69-year-old female recently diagnosed with HER2 positive left breast cancer. Patient going through adjuvant chemotherapy. Here for Port-A-Cath placement. Has not had 1 previously. Past Medical History Past Medical History: Asthma, Cancer, GERD/Reflux, Hyperlipidemia, Hypertension, Osteoarthritis (OA) Additional Past Medical History / Comment(s): Asthma on exertion. Borderline high chol- No meds. left breast cancer, vertebrae fx/back pain History of Any Multi-Drug Resistant Organisms: None Reported Past Surgical History: Breast Surgery, Orthopedic Surgery Additional Past Surgical History / Comment(s): broken rt ankle with plate; portion of lt clavicle removed. steriod back injections. left breast lumpectomy 3 weeks ago Past Anesthesia/Blood Transfusion Reactions: Previous Problems w/ Anesthesia, Postoperative Nausea & Vomiting (PONV) Additional Past Anesthesia/Blood Transfusion Reaction / Comment(s): Extreme PONV (that lasts a day)-difficult to wake up. no hx of blood transfusion. Smoking Status: Never smoker - Past Family History Father Family Medical History: Cancer Additional Family Medical History / Comment(s): Lung cancer Mother Family Medical History: CVA/TIA Medications and Allergies Home Medications Medication Instructions Recorded Confirmed Type Metoprolol Succinate (ER) [Toprol 25 mg PO QAM 03/13/24 08/10/24 History Xl] Prilosec(Unknown Dose) 1 dose PO QAM 03/13/24 08/10/24 History Proventil(Unknown Dose) 1 - 2 puff INHALATION QAM PRN 03/13/24 08/10/24 History Vitamin D(Unknown Dose) 1 dose PO QAM 03/13/24 08/10/24 History amLODIPine BESYLATE 2.5 mg PO QAM 03/13/24 08/10/24 History Acetaminophen Tab [Tylenol Tab] 500 mg PO Q6H PRN 07/16/24 08/10/24 History Allergies Allergy/AdvReac Type Severity Reaction Status Date / Time No Known Allergies Allergy Verified 08/10/24 08:02 Surgical - Exam Vital Signs Temp Pulse Resp BP Pulse Ox 97.0 F L 108 H 16 136/79 97 08/10/24 08:08 08/10/24 08:08 08/10/24 08:08 08/10/24 08:08 08/10/24 08:08 Physical exam: General: Well-developed, well-nourished HEENT: Normocephalic, sclerae nonicteric Abdomen: Nontender, nondistended Extremities: No edema Neuro: Alert and oriented Results - Labs Abnormal Lab Results - Last 24 Hours (Table) 08/10/24 Range/Units 08:22 POC Glucose (mg/dL) 112 H (70-110) mg/dL Assessment and Plan (1) Breast cancer, left Narrative/Plan: Will proceed with Port-A-Cath placement at this time. Risks of bleeding, infection, DVT, pneumothorax, catheter malfunction, anesthesia related complications were discussed. The patient understands and wishes to proceed. Current Visit: Yes Status: Acute Code(s): C50.912 - MALIGNANT NEOPLASM OF UNSPECIFIED SITE OF LEFT FEMALE BREAST SNOMED Code(s): 701678028
[2024-08-10 11:02] VITALS: RESP 18
[2024-08-10 11:21] VITALS: BP 115/69; PULSE 71
--- NOTE | 2024-08-10 11:37 | XR ---
EXAMINATION TYPE: XR chest 1V confirm line plcmt DATE OF EXAM: 08/10/2024 11:01 AM COMPARISON: None CLINICAL INDICATION: Female, 69 years old with history of Check Line placement; TECHNIQUE: XR chest 1V confirm line plcmt Frontal view of the chest. FINDINGS: Lungs/Pleura: There is no evidence of pleural effusion, focal consolidation, or pneumothorax. Pulmonary vascularity: Unremarkable. Heart/mediastinum: Cardiomediastinal silhouette is unremarkable. Musculoskeletal: No acute osseous pathology. Other findings: None Right Ocleeb-f-Bkxl with tip in appropriate position. No evidence for pneumothorax. IMPRESSION: No acute cardiopulmonary disease/process. [facility], , 08/10/2024 11:34 AM
--- NOTE | 2024-08-10 12:24 | FL ---
EXAMINATION TYPE: FL guided central line placemt DATE OF EXAM: 08/10/2024 10:27 AM COMPARISON: Pre Operative Images if available both CT/MRI or plain film CLINICAL INDICATION: Female, 69 years old with history of PORT A CATH INSERTION; TECHNIQUE: FL guided central line placemt, multiple fluoroscopic images provided for procedure. Total fluoroscopy time: 8.2 seconds Total submitted images to PACS: 1 DAP: 0.3132 mGym2 Gycm2 uGym2 cGycm2 or equivalent. FINDINGS: Fluoroscopic imaging for Port-A-Cath insertion no evidence for pneumothorax. Multilevel degeneration changes of the spine. IMPRESSION: 1. No evidence for intraoperative complication. 2. Please see the operative/procedural note for further details. [facility], , 08/10/2024 12:21 PM
== END 2024-08-10 11:52 | disposition home or self-care (01) ==
LOC: OR 07:49
PROVIDERS: ATTEND Surgery
DX: C50.912 Malignant neoplasm of unspecified site of left female breast (principal); I10 Essential (primary) hypertension; E78.5 Hyperlipidemia, unspecified; J45.909 Unspecified asthma, uncomplicated; K21.9 Gastro-esophageal reflux disease without esophagitis; M19.90 Unspecified osteoarthritis, unspecified site; M54.50 Low back pain, unspecified; Z80.1 Family history of malignant neoplasm of trachea, bronchus and lung; Z82.3 Family history of stroke; Z87.891 Personal history of nicotine dependence; Z45.2 Encounter for adjustment and management of vascular access device; Z79.1 Long term (current) use of non-steroidal anti-inflammatories (NSAID); Z79.899 Other long term (current) drug therapy
CPT/HCPCS: 36561; 76937; 77001; C1788; J2250; J1642; J1100; J2405; J0690; J2003; J1885; J2704; J1596

== ENCOUNTER → 2024-08-20 | Outpatient (CLI) | payer BC ==
--- NOTE | 2024-08-20 10:22 | P.PN ---
Subjective Progress Note Date: 08/20/24 Principal diagnosis: Seroma left breast lumpectomy site Jamila is a 69-year-old female status post left breast lumpectomy and sentinel node biopsy on 07-17-2024. She had all margins negative for a 1.6 cm invasive ductal carcinoma. This was ER positive MO positive Her 2+. She had 4 nodes removed all were negative for tumor. She has been seen by medical oncology and a Port-A-Cath was placed on 08-10-2024. Postoperatively she began to experience some drainage from the lumpectomy site consistent with a seroma approximately a week ago. She is here for evaluation regarding this. She has been seen by medical oncology and chemotherapy will be started on August 31. She will have radiation following the chemotherapy. Examination: Lungs: Clear Heart: Regular rate and rhythm Incision areola region some skin necrosis at the medial aspect of the incision this will be debrided and reinforced Impression/Plan: Patient doing well post left breast lumpectomy and sentinel node biopsy she does have some necrosis of the medial aspect of the periareolar incision which will be debrided and reinforced CC: Dr. Perez
[2024-08-20 11:08] VITALS: BP 131/79; PULSE 80; RESP 16; TEMP 97.8
== END ==
LOC: WWCWWP 09:59
PROVIDERS: ATTEND Surgery
DX: N64.89 Other specified disorders of breast (principal); Z98.890 Other specified postprocedural states

== ENCOUNTER → 2024-08-24 | Outpatient (CLI) | payer BC ==
[2024-08-24 15:22] VITALS: BP 132/75; PULSE 87; RESP 17; TEMP 97.9
--- NOTE | 2024-08-24 15:35 | P.PN ---
Subjective Progress Note Date: 08/24/24 Subjective Progress Note Date: 08-24-24 Principal diagnosis: Seroma left breast lumpectomy site Jamila is a 69-year-old female status post left breast lumpectomy and sentinel node biopsy on 07-17-2024. She had all margins negative for a 1.6 cm invasive ductal carcinoma. This was ER positive IN positive Her 2+. She had 4 nodes removed all were negative for tumor. She has been seen by medical oncology and a Port-A-Cath was placed on 08-10-2024. Postoperatively she began to experience some drainage from the lumpectomy site consistent with a seroma approximately a week ago. She is here for evaluation regarding this. She has been seen by medical oncology and chemotherapy will be started on August 31. She will have radiation following the chemotherapy. On 08-20-24 following informed consent the area of concern in the left breast was prepped using chlorhexidine. 1% lidocaine was used to anesthetize the area of concern. Debridement was performed of the necrotic tissue. This caused entrance into the lumpectomy cavity. This was probed and serous fluid was expressed. When no more serous fluid could be expressed and the wound had been adequately debrided the skin was closed using 3-0 nylon suture. Tolerated the procedure in stable condition. She will follow-up 4 days. Examination: Lungs: Clear Heart: Regular rate and rhythm Incision areola region clean and dry and well healed Impression/Plan: Patient doing well post left breast lumpectomy follow up 1 week for suture removal CC: Dr. Perez Objective - Vital Signs Vital signs: Vital Signs Temp 97.9 F 08/24/24 15:19 Pulse 87 08/24/24 15:19 Resp 17 08/24/24 15:19 BP 132/75 08/24/24 15:19 Pulse Ox 98 08/24/24 15:19 FiO2 Intake & Output 08/23/24 08/24/24 08/24/24 18:59 06:59 18:59 Weight 98.883 kg
== END ==
LOC: WWCWWP 14:54
PROVIDERS: ATTEND Surgery
DX: N64.89 Other specified disorders of breast (principal)

== ENCOUNTER → 2024-08-31 | Outpatient (CLI) | payer BC ==
[2024-08-31 15:28] VITALS: BP 132/81; PULSE 96; RESP 17; TEMP 97.9
--- NOTE | 2024-08-31 15:49 | P.PN ---
Subjective Progress Note Date: 08/31/24 08-31-24 Principal diagnosis: Seroma left breast lumpectomy site Jamila is a 69-year-old female status post left breast lumpectomy and sentinel node biopsy on 07-17-2024. She had all margins negative for a 1.6 cm invasive ductal carcinoma. This was ER positive GA positive Her 2+. She had 4 nodes removed all were negative for tumor. She has been seen by medical oncology and a Port-A-Cath was placed on 08-10-2024. Postoperatively she began to experience some drainage from the lumpectomy site consistent with a seroma approximately a week ago. She is here for evaluation regarding this. She has been seen by medical oncology and chemotherapy will be started on . She will have radiation following the chemotherapy. On 08-20-24 following informed consent the area of concern in the left breast was prepped using chlorhexidine. 1% lidocaine was used to anesthetize the area of concern. Debridement was performed of the necrotic tissue. This caused entrance into the lumpectomy cavity. This was probed and serous fluid was expressed. When no more serous fluid could be expressed and the wound had been adequately debrided the skin was closed using 3-0 nylon suture. Tolerated the procedure in stable condition. She will follow-up 4 days. Examination: Lungs: Clear Heart: Regular rate and rhythm Incision areola region clean and dry and well healed Impression/Plan: suture removal Patient doing well post left breast lumpectomy follow up 4 months CC: Dr. Perez Objective - Vital Signs Vital signs: Vital Signs Temp 97.9 F 08/31/24 15:26 Pulse 96 08/31/24 15:26 Resp 17 08/31/24 15:26 BP 132/81 08/31/24 15:26 Pulse Ox 96 08/31/24 15:26 FiO2 Intake & Output 08/30/24 08/31/24 08/31/24 18:59 06:59 18:59 Weight 97.522 kg
== END ==
LOC: WWCWWP 15:20
PROVIDERS: ATTEND Surgery
DX: N64.89 Other specified disorders of breast (principal)

== ENCOUNTER → 2024-09-07 | Outpatient (CLI) | payer BC ==
[2024-09-07 19:16] LABS: HCT 40.4 % (37.2-46.3); HGB 12.8 g/dL (12.0-15.0); MCH 28.6 pg (27.0-32.0); MCHC 31.7 g/dL (32.0-37.0); MCV 90.4 FL (80.0-97.0); Mean Platelet Volume 10.1 FL (9.5-12.2); NRBC Per 100 WBC 0 X 10*3/uL (0.00-0.01); Platelet Count 348 X 10*3/uL (140-440); RBC 4.47 X 10*6/uL (4.10-5.20); RDW 12.8 % (11.5-14.5); WBC 3.14 X 10*3/uL (4.50-10.00)
[2024-09-07 20:12] LABS: Basophils # (M) 0.09 X 10*3/uL (0.00-0.10); Eosinophils # (M) 0.03 X 10*3/uL (0.04-0.35); Microcytosis (M) 2+ (None Seen); Monocytes # (M) 0.06 X 10*3/uL (0.20-1.00); Neutrophils # (M) 2.45 X 10*3/uL (1.80-7.70); Neutrophils % (M) 78 %
[2024-09-07 21:34] LABS: ALT 40 U/L (8-44); AST 23 U/L (13-35); Albumin 4.3 g/dL (3.8-4.9); Albumin/Globulin Ratio 1.65 Ratio (1.60-3.17); Alkaline Phosphatase 57 U/L (41-126); Blood Urea Nitrogen 14.4 mg/dL (9.0-27.0); Carbon Dioxide 21.9 mmol/L (21.6-31.8); Chloride 108 mmol/L (96-109); Globulin 2.6 g/dL (1.6-3.3); Glucose 152 mg/dL (70-110); Potassium 4.3 mmol/L (3.5-5.5); Sodium 142 mmol/L (135-145); T4, Free (Free Thyroxine) 1.53 ng/dL (0.80-1.80); Total Bilirubin 0.7 mg/dL (0.3-1.2); Total Protein 6.9 g/dL (6.2-8.2)
== END | disposition home or self-care (01) ==
LOC: LABWHC1 13:17
PROVIDERS: ATTEND Family Medicine
DX: R00.2 Palpitations (principal)
CPT/HCPCS: 36415; 80053; 83735; 84439; 84443; 85025; 86141

== ENCOUNTER → 2024-11-05 | Outpatient (CLI) | payer BC ==
--- NOTE | 2024-11-06 08:04 | CA ---
Transthoracic Echo Report Name: Jamila Hernandez Age: 69 Gender: F : 1955 Exam Date: 11/05/2024 15:00 Exam Location: [place] [facility] Ht (in): 66 Wt (lb): 208 Ordering Physician: Diana Jessica MD Attending/Referring Phys: Radio Sales Account Executive Joaquín Medel RDCS Procedure CPT: Indications: Z01.818 ENCOUNTER FOR OTHER PREPROCEDURAL EXAMINAT Cardiac Hx: Technical Quality: Good Contrast 1: Total Dose (mL): Contrast 2: Total Dose (mL): MEASUREMENTS (Male / Female) Normal Values 2D ECHO LV Diastolic Diameter PLAX 5.2 cm 4.2 - 5.9 / 3.9 - 5.3 cm LV Systolic Diameter PLAX 3.9 cm IVS Diastolic Thickness 0.9 cm 0.6 - 1.0 / 0.6 - 0.9 cm LVPW Diastolic Thickness 0.9 cm 0.6 - 1.0 / 0.6 - 0.9 cm LV Relative Wall Thickness 0.3 RV Internal Dim ED PLAX 2.4 cm LVOT Diameter 2.0 cm LA Systolic Diameter LX 3.5 cm 3.0 - 4.0 / 2.7 - 3.8 cm LV Diastolic Volume MOD 4C 108.3 cm??? LV Systolic Volume MOD 4C 35.3 cm??? LV Ejection Fraction MOD 4C 67.4 % LV Cardiac Index MOD 4C 2293.7 cm???/min???m??? LV Diastolic Length 4C 8.7 cm LV Systolic Length 4C 6.7 cm LV Diastolic Volume MOD 2C 102.3 cm??? LV Systolic Volume MOD 2C 33.7 cm??? LV Ejection Fraction MOD 2C 67.1 % LV Cardiac Index MOD 2C 2155.4 cm???/min???m??? LV Diastolic Length 2C 8.9 cm LV Systolic Length 2C 6.7 cm LA Volume 56.6 cm??? 18 - 58 / 22 - 52 cm??? LA Volume Index 26.6 cm???/m??? 16 - 28 cm???/m??? DOPPLER AV Peak Velocity 148.6 cm/s AV Peak Gradient 8.8 mmHg AV Mean Velocity 98.0 cm/s AV Mean Gradient 4.5 mmHg AV Velocity Time Integral 29.4 cm MV Area PHT 2.7 cm??? Mitral E Point Velocity 55.1 cm/s Mitral A Point Velocity 56.7 cm/s Mitral E to A Ratio 1.0 MV Deceleration Time 278.2 ms TR Peak Velocity 135.3 cm/s TR Peak Gradient 7.3 mmHg Right Atrial Pressure 20.0 mmHg Pulmonary Artery Systolic Pressu 27.3 mmHg Right Ventricular Systolic Press 27.3 mmHg FINDINGS Left Ventricle Left ventricular ejection fraction is estimated at 60 %. Normal Left ventricular size, wall thickness, systolic function with no obvious regional wall motion abnormalities. Right Ventricle Normal right ventricular size and function. Right ventricular systolic pressure within normal limits. Right Atrium Normal right atrial size. Left Atrium Mildly increased left atrial volume. Mitral Valve Structurally normal mitral valve. No mitral stenosis. Trace mitral regurgitation. Aortic Valve Trileaflet aortic valve. No aortic valve stenosis or regurgitation. Tricuspid Valve Structurally normal tricuspid valve. Trace tricuspid regurgitation. Pulmonic Valve Pulmonic valve not well visualized. No pulmonic stenosis. No pulmonic regurgitation. Pericardium No pericardial effusion. Aorta Normal size aortic root. CONCLUSIONS Normal LV size and systolic function. No significant abnormality on the Doppler exam. No pericardial effusion Previewed by: Dr. Devi Valdovinos MD (Electronically Signed) Final Date: 06 November 2024 08:02
== END | disposition home or self-care (01) ==
LOC: RADECHMAIN 14:50
PROVIDERS: ATTEND Internal Medicine Hematology & Oncology
DX: Z01.818 Encounter for other preprocedural examination (principal); C50.812 Malignant neoplasm of overlapping sites of left female breast; D70.2 Other drug-induced agranulocytosis; I07.1 Rheumatic tricuspid insufficiency; M12.9 Arthropathy, unspecified; I10 Essential (primary) hypertension; Z71.3 Dietary counseling and surveillance
CPT/HCPCS: 93306

== ENCOUNTER → 2025-01-04 | Outpatient (CLI) | payer BC | LOC: WWCWWP 11:35 | PROVIDERS: ATTEND Surgery | DX: Z53.9 Procedure and treatment not carried out, unspecified reason (principal) ==

== ENCOUNTER → 2025-01-08 | Outpatient (CLI) | payer BC ==
--- NOTE | 2025-01-08 14:36 | CA ---
Transthoracic Echo Report Name: Jamila Hernandez Age: 69 Gender: F : 1955 Exam Date: 01/08/2025 12:44 Exam Location: [facility] Ht (in): 66 Wt (lb): 214 Ordering Physician: Diana Jessica MD Attending/Referring Phys: [employer] Marie Pugh RDCS Procedure CPT: Indications: Z01.818 ENCOUNTER FOR OTHER PREPROCEDURAL EXAMINAT Cardiac Hx: Technical Quality: Fair Contrast 1: Total Dose (mL): Contrast 2: Total Dose (mL): MEASUREMENTS (Male / Female) Normal Values 2D ECHO LV Diastolic Diameter PLAX 4.2 cm 4.2 - 5.9 / 3.9 - 5.3 cm LV Systolic Diameter PLAX 2.7 cm IVS Diastolic Thickness 1.2 cm 0.6 - 1.0 / 0.6 - 0.9 cm LVPW Diastolic Thickness 1.1 cm 0.6 - 1.0 / 0.6 - 0.9 cm LV Relative Wall Thickness 0.6 RV Internal Dim ED PLAX 2.4 cm LA Systolic Diameter LX 3.7 cm 3.0 - 4.0 / 2.7 - 3.8 cm M-MODE Aortic Root Diameter MM 3.4 cm LA Systolic Diameter MM 2.7 cm LA Ao Ratio MM 0.8 AV Cusp Separation MM 1.6 cm DOPPLER AV Peak Velocity 159.5 cm/s AV Peak Gradient 10.2 mmHg MV Area PHT 2.5 cm??? Mitral E Point Velocity 76.8 cm/s Mitral A Point Velocity 81.7 cm/s Mitral E to A Ratio 0.9 MV Deceleration Time 309.6 ms TR Peak Velocity 224.1 cm/s TR Peak Gradient 20.1 mmHg FINDINGS Left Ventricle Left ventricular ejection fraction is estimated at 60-65 %. Mildly increased septal wall thickness. Mildly increased posterior wall thickness. Normal left ventricular systolic function with no obvious regional wall motion abnormalities. Left ventricular cavity size normal. Normal average global longitudinal strain of the left ventricle with a value of - 21%. Right Ventricle Normal right ventricular size and function. Right ventricular systolic pressure within normal limits. Right Atrium Normal right atrial size. Left Atrium Moderate left atrial dilatation. Mitral Valve Structurally normal mitral valve. Mild mitral regurgitation. No mitral stenosis. Aortic Valve Trileaflet aortic valve. No aortic valve stenosis or regurgitation. Tricuspid Valve Structurally normal tricuspid valve. No tricuspid stenosis. Mild tricuspid regurgitation. Pulmonic Valve Structurally normal pulmonic valve. Trace pulmonic regurgitation. No pulmonic stenosis. Pericardium No pericardial or pleural effusion. Echo free space anterior to the right ventricle likely represents a fat pad. Aorta Normal size aortic root and proximal ascending aorta. CONCLUSIONS Reason for echo: LV function assessment prior to chemotherapy as a baseline Normal LV size and function LVH Left ventricular ejection fraction 60-65% Left atrial enlargement Previewed by: Dr. Bj Deutsch MD (Electronically Signed) Final Date: 08 Jan 2025 14:35
== END | disposition home or self-care (01) ==
LOC: RADECHMAIN 12:45
PROVIDERS: ATTEND Internal Medicine Hematology & Oncology
DX: Z01.818 Encounter for other preprocedural examination (principal); C50.812 Malignant neoplasm of overlapping sites of left female breast; I10 Essential (primary) hypertension; D70.2 Other drug-induced agranulocytosis; E87.70 Fluid overload, unspecified; Z71.3 Dietary counseling and surveillance; M12.9 Arthropathy, unspecified
CPT/HCPCS: 93306

== ENCOUNTER → 2025-02-28 | Outpatient (CLI) | payer BC ==
[2025-02-28 13:14] VITALS: RESP 17
[2025-02-28 13:29] VITALS: BP 133/81; PULSE 68; TEMP 98
--- NOTE | 2025-02-28 13:31 | P.PN ---
Subjective Progress Note Date: 02/28/25 Principal diagnosis: [id number]+Her2+G2 left breast IDC [id number] History of Present Illness: left breast IDC History of present illness: Jamila is a 68 year old female seen in consultation on 06-20-[address] Perez/ Aracely Bishop regarding a left breast biopsy-proven invasive ductal carcinoma. She underwent a bilateral mammogram on 03-30-2024. This revealed in the left breast architectural distortion which was approximately 3.2 cm from the nipple on the cc view. Diagnostic mammogram was recommended. Ultrasound of the left breast was performed on 05-02-2024. This showed a 1.5 x 1.2 cm highly suspicious lesion in the left retroareolar region. She underwent an ultrasound- guided core biopsy on 06-08-2024. Biopsy revealed invasive moderately differentiated ductal carcinoma grade 2. This is ER/MO positive HER2 pending. She did not feel anything in her breast. She has never had any surgery on either breast. She is not complaining of any recent trauma or infection in the breast. Case presented at tumor board and recommendation was for a left breast needle localization lumpectomy and sentinel node biopsy She underwent a left breast lumpectomy and sentinel node biopsy in 07-17-2024. All margins negative for a 1.6 cm invasive ductal carcinoma. ER/MO positive HER2 + 4 nodes removed all negative. She was seen by medical oncology and a Port-A-Cath was placed on 08-10-2024. Postoperatively she developed a seroma and this was drained. note medical oncology 01-15-25 reviewed; completed 12 weeks of chemotherapy on 11-30-2024; she is getting infusions of Ogivri every three weeks ( like herceptin until 2024) note radiation oncology 12-11-24 reviewed; finished 1 month ago Started on letrozole 2 weeks ago She is not noted any new lumps masses or nodules of concern in either breast. Caffeine: 3 cups/day nicotine: stopped 40 years ago, smoked for 5 years 3 cig/day chocolate: occasional BCP: < 1 year many years ago hormones: none Family History: father: lung cancer smoker Hormonal History: menarche: 15 M3, breast fed: no, age at first : 31 menopause: 54 Surgical History: fracture right ankle left color bone arthritis D&C 2 months ago polyp, bleeding now; Dr. Hoffman port-cath placed Left breast lumpectomy and sentinel node biopsy Medical History: HTN osteo-arthritis back pain cortisone injections in back for about 1 year Social History: nicotine: as above alcohol: occasional ( twice a month) drugs: none Review of Systems - Constitutional Reports sweats - EENT Eyes: denies blurred vision Ears: deny: decreased hearing, tinnitus Ears, nose, mouth and throat: Denies dysphagia - Breasts bilateral: as per HPI - Cardiovascular Denies chest pain, Denies shortness of breath - Respiratory Denies cough - Gastrointestinal Reports as per HPI - Genitourinary Genitourinary: Denies dysuria, Denies hematuria Menstruation: Reports as per HPI - Musculoskeletal Reports as per HPI - Integumentary Denies rash, Denies unusual bruising - Neurological Denies headaches, Denies syncope - Psychiatric Reports as per HPI - Endocrine Reports as per HPI - Hematologic/Lymphatic Reports as per HPI - Allergic/Immunologic Reports as per HPI Past Medical History Past Medical History: Asthma, GERD/Reflux, Hyperlipidemia, Hypertension, Os teoarthritis (OA) Additional Past Medical History / Comment(s): Reason for procedure-"Abnormal bleeding." "They tried to take a bx in the office but my cervix wouldn't open." Asthma on exertion. "Borderline high cholesterol.""No medication for it." History of Any Multi-Drug Resistant Organisms: None Reported Past Surgical History: Orthopedic Surgery Additional Past Surgical History / Comment(s): Broken rt ankle-plate in ankle. Portion of my lt clavicle removed due to arthritis. Back injections steroid x2. Past Anesthesia/Blood Transfusion Reactions: Postoperative Nausea & Vomiting (PONV) Additional Past Anesthesia/Blood Transfusion Reaction / Comm: Extreme PONV (that lasts a day)-difficult to wake up. no hx of blood transfusion. Past Psychological History: No Psychological Hx Reported Smoking Status: Former smoker Past Alcohol Use History: Rare Additional Past Alcohol Use History / Comment(s): Smoked at age 20 for 1 year. less then a ppd. Past Drug Use History: None Reported - Past Family History Father Family Medical History: Cancer Additional Family Medical History / Comment(s): Lung cancer Medications and Allergies Home Medications Medication Instructions Recorded Confirmed Type Celecoxib [CeleBREX] 200 mg PO QAM 03/13/24 06/20/24 History Metoprolol Succinate (ER) [Toprol 25 mg PO QAM 03/13/24 06/20/24 History Xl] Motrin(Unknown Dose) 1 dose PO Q8H PRN 03/13/24 06/20/24 History Prilosec(Unknown Dose) 1 dose PO QAM 03/13/24 06/20/24 History Proventil(Unknown Dose) 1 - 2 puff INHALATION QAM PRN 03/13/24 06/20/24 History Vitamin D(Unknown Dose) 1 dose PO QAM 03/13/24 06/20/24 History amLODIPine BESYLATE 2.5 mg PO QAM 03/13/24 06/20/24 History Allergies Allergy/AdvReac Type Severity Reaction Status Date / Time No Known Allergies Allergy Verified 06/20/24 10:02 Objective - Constitutional General appearance: Present: cooperative - EENT ENT: Present: hearing grossly normal - Neck Neck: Present: normal ROM - Respiratory Respiratory: bilateral: CTA - Cardiovascular Rhythm: regular Heart sounds: normal: S1, S2 - Integumentary Integumentary: Present: normal turgor - Musculoskeletal Musculoskeletal: Present: gait normal - Psychiatric Psychiatric: Present: A&O x's 3, appropriate affect, intact judgment & insight - Additional findings Additional findings: Breast Exam: BRA: Sports bra 3X Inspection: Well-healed scar left breast from prior surgery, right breast larger than left breast, bilateral grade 2 ptosis Palpation: right breast: Multi positional exam no dominant masses or nodules of concern Right axilla: No adenopathy of concern Left breast: Multi positional exam no dominant masses or nodules of concern Left axilla: No adenopathy of concern Assessment and Plan Assessment: Impression: Left breast invasive ductal carcinoma stage I no evidence of recurrence Patient is presently receiving an anti-HER2 medication Has completed 12 weeks of chemotherapy Is started on letrozole Completed radiation therapy Hypertension Plan: Bilateral mammogram in 3 months with physician exam at that time Continue to follow with medical oncology Continue to follow with radiation oncology Follow-up sooner any questions or concerns CC: Dr. Jessica, Dr. Perez
== END ==
LOC: WWCWWP 12:56
PROVIDERS: ATTEND Surgery
DX: C50.912 Malignant neoplasm of unspecified site of left female breast (principal); I10 Essential (primary) hypertension; Z92.3 Personal history of irradiation